=== PATIENT | male | born 1970 | race Caucasian/White ===

== ENCOUNTER 2016-07-26 19:58 | Inpatient (IN) | payer BC ==
[2016-07-26] MEDS ORDERED: COZAAR25 M1 PO (20:02)
[2016-07-26] MEDS ORDERED: AMLODIPINE BES2.5 MG PO (20:02)
[2016-07-26] MEDS ORDERED: CHILDREN'S CLARI5 M1 PO (20:03)
[2016-07-26] MEDS ORDERED: IMITREX 25MG TA25 MG PO (20:03)
[2016-07-26 20:05] VITALS: BP 145/85
[2016-07-26 23:13] VITALS: BP 157/115
[2016-07-26 23:45] VITALS: BP 157/115
[2016-07-27] VITALS (9 sets, daily range): BP systolic 109–172; BP diastolic 57–114
[2016-07-28 03:01] VITALS: BP 107/60
[2016-07-28] MEDS ORDERED: HYZAAR 100-251 EACH PO (05:18)
[2016-07-28] MEDS ORDERED: LYSINE 500500 MG/TAB PO (05:34)
[2016-07-28 06:21] VITALS: BP 119/66
[2016-07-28] MEDS ORDERED: CIPRO500 M1 PO (10:12)
[2016-07-28] MEDS ORDERED: FLAGYL500 M1 PO (10:13)
[2016-07-28 10:17] VITALS: BP 149/81
== END 2016-07-28 11:34 | disposition home or self-care (01) | DRG 312 ==
LOC: ED 19:58 → MED/SURG 22:32 → ED 22:32 → MED/SURG 23:03
PROVIDERS: ADMIT Nurse Practitioner Family
DX: I95.1 Orthostatic hypotension (principal); K52.9 Noninfective gastroenteritis and colitis, unspecified; G43.909 Migraine, unspecified, not intractable, without status migrainosus; R10.13 Epigastric pain; R79.89 Other specified abnormal findings of blood chemistry; D72.829 Elevated white blood cell count, unspecified; K76.0 Fatty (change of) liver, not elsewhere classified; K82.8 Other specified diseases of gallbladder; I10 Essential (primary) hypertension; R73.03 Prediabetes; M19.90 Unspecified osteoarthritis, unspecified site; Z85.828 Personal history of other malignant neoplasm of skin
CPT/HCPCS: C9113; J0744; J1200; J1885; J2405; J2550; J7030; Q9967